=== PATIENT | female | born 1995 | race Caucasian/White ===

== ENCOUNTER 2024-05-14 12:05 | Emergency (ER) | payer BC, SELFPAY ==
[2024-05-14 12:09] VITALS: BP 123/96
--- NOTE | 2024-05-14 12:16 | ED.GENMED ---
History of Present Illness
<Temi Montero PA-C - Last Filed: 05/14/24 16:09>
General
Chief Complaint: Headache
Source: patient
Exam Limitations: none
Time Seen by Provider: 05/14/24 12:16
Nursing documentation reviewed up to this point in time: agreed with
History of Present Illness
History of Present Illness:
28-year-old female past medical history of migraines presents emergency department today with concerns of headache. Patient states that she woke up with a severe headache all over her head. She notes that her typical migraine she feels posteriorly
and are associated with nausea and vomiting. Patient states that she has never had headache this severe before. She has no fevers or chills. She notes some weakness when walking up the stairs and noes intermittent tingling the back of her head as
well as intermittent fullness and sensation of pressure. She also feels this behind her eyes. She denies dysphagia, facial droop, difficulty speaking, dizziness, lightheadedness, visual loss.
Review of Systems
<Temi Montero PA-C - Last Filed: 05/14/24 16:09>
Review of Systems
All Other Systems: ROS reviewed and negative except as documented in HPI and ROS
Phy Exam
<Temi Montero PA-C - Last Filed: 05/14/24 16:09>
Physical Exam
Physical Exam:
General: Patient is well appearing and in no acute distress; non-toxic
Skin: Warm and dry, no rashes or lesions
Head: Normocephalic, atraumatic
Eyes: Sclera non-icteric. EOMs intact. PERRLA.
Cardiac: Regular rate and rhythm, no murmurs
Pulm: Normal respiratory effort, no wheezes, rales, rhonchi
Musculoskeletal: 5/5 strength in bilateral upper and lower extremity
Neuro: CN II-XII intact, no focal neurologic deficits. Normal finger to nose, heel to amezcua testing, noral gait
Psychiatric: Appropriate mood and affect.
Course
<Temi Montero PA-C - Last Filed: 05/14/24 16:09>
Orders/Labs/Results
Orders:
Orders
05/14/24 12:35
Diphenhydramine [Benadryl] 25 mg IV NOW STA
Ketorolac [Toradol] 15 mg IV NOW STA
Metoclopramide [Reglan] 10 mg IV NOW STA
05/14/24 12:36
0.9% Sodium Chloride 1000 ml [Nss] 1,000 ml IV BOLUS
05/14/24 12:38
CT Head W/o Iv Contrast Urgent
Comment:
Reason For Exam: severe PITTS
Vital Signs
Initial and Last Documented VS:
Initial Vital Signs
Temp Pulse Resp BP Pulse Ox
97.6 F 76 18 123/96 100
05/14/24 12:09 05/14/24 12:09 05/14/24 12:09 05/14/24 12:09 05/14/24 12:09
Last Documented Vital Signs
Temp Pulse Resp BP Pulse Ox
97.6 F 76 18 110/67 99
05/14/24 12:09 05/14/24 12:09 05/14/24 12:09 05/14/24 13:35 05/14/24 13:36
<Romulo Goldberg DO - Last Filed: 05/14/24 13:46>
Orders/Labs/Results
Orders:
Orders
05/14/24 12:35
Diphenhydramine [Benadryl] 25 mg IV NOW STA
Ketorolac [Toradol] 15 mg IV NOW STA
Metoclopramide [Reglan] 10 mg IV NOW STA
05/14/24 12:36
0.9% Sodium Chloride 1000 ml [Nss] 1,000 ml IV BOLUS
05/14/24 12:38
CT Head W/o Iv Contrast Urgent
Comment:
Reason For Exam: severe PITTS
Vital Signs
Initial and Last Documented VS:
Initial Vital Signs
Temp Pulse Resp BP Pulse Ox
97.6 F 76 18 123/96 100
05/14/24 12:09 05/14/24 12:09 05/14/24 12:09 05/14/24 12:09 05/14/24 12:09
Last Documented Vital Signs
Temp Pulse Resp BP Pulse Ox
97.6 F 76 18 110/67 99
05/14/24 12:09 05/14/24 12:09 05/14/24 12:09 05/14/24 13:35 05/14/24 13:36
<Temi Montero PA-C - Last Filed: 05/14/24 16:09>
MDM/Problems Addressed
Differential Diagnosis Includes:
ddx include complex migraine, tension headache ,cluster headache, pseudotumor cerebri, subarachnoid hemorrhage
MDM/Problems Addressed:
NUMBER AND COMPLEXITY OF PROBLEMS ADDRESSED AT THE ENCOUNTER
� Chronic conditions affecting care: History of migraines
� Acute Exacerbation and/or Progression of Chronic Illness: n/a
AMOUNT AND/OR COMPLEXITY OF DATA TO BE REVIEWED AND ANALYZED
� I performed an independent evaluation of and my interpretation is:
CT: no acute intracranial abnormality
Other:
� Review of other/old records: No previous ER physician documentation to review or hospital discharge summaries to review
� Clinical information was obtained by an independent historian: partner present with patient
� Prescriptions/Medications Considered but not given: n/a
� Further testing considered but not performed: n/a
RISK OF COMPLICATIONS AND/OR MORBIDITY OR MORTALITY OF PATIENT MANAGEMENT
� Social determinants of health affecting care: none
� Discussion with other providers: ER attending
� Escalation of care including admission/observation vs risk of discharge considered:
28-year-old female with a past medical history of migraines presents emergency department today with headache. Patient notes that she has had on and off headaches for a while now and has a movements every other day but states that she woke up with,
the worst headache she has ever had. She also complained of subjective weakness but on her exam, she is well-appearing, she has no focal neurologic deficits. She has normal gait. She had a CAT scan of her head which was negative for any acute
intracranial abnormality, no evidence of bleeding. Suspect complex migraine. Patient was given migraine cocktail and notes a complete improvement in her symptoms. Patient is concerned that she might get this severe of a migraine again. Did
discuss maximizing ibuprofen and discussed appropriate dosing, also discussed sending rizatriptan as needed, discussed importance of follow-up for this and discussed the importance of establishing a PCP should patient not be able to get in with the
neurologist. Discussed return precautions, patient stable discharge.
<Temi Montero PA-C - Last Filed: 05/14/24 16:09>
*Critical Care Note
Total Time (30-74mins, 75-104mins- exclusive of procedures): Not Applicable
ED Attending Note
<Temi Montero PA-C - Last Filed: 05/14/24 16:09>
-
Portions of this chart may have been created with voice recognition software.� Occasional wrong word or��sound alike� substitutions may have occurred due to the inherent limitations of voice recognition software.
<Romulo Goldberg DO - Last Filed: 05/14/24 13:46>
ED Attending Note
Patient seen and examined by attending physician: Yes
I performed the substantive portion of visit, reviewed & personally made and approve the management plan that is documented in note by myself or MARGARITA.: Yes
ED Attending Note:
I evaluated patient at bedside. The patient reports a rather severe headache mostly in the back of her head. She does have a history of migraine but this feels worse. Therefore CT imaging obtained as patient denies any prior neuroimaging. CT
imaging negative. She is overall improved after meds given today.
Discharge Plan
Departure
Patient Disposition: Home (Routine Discharge)
Date of Disposition: 05/14/24
Time of Disposition: 14:05
Patient with high blood pressure during this ER visit?: No
Condition: Good
Discharge Problem:
Migraine headache
Instructions: Migraines (DC), Headache, Adult (DC)
Prescriptions:
New
rizatriptan 10 mg tablet
10 mg PO ONCE Qty: 8 0RF
Referrals:
NONE,* [Family Provider] -
Activity Restrictions/Additional Instructions:
Please schedule appointment to see a neurologist or primary care provider to help determine the appropriate migraine medication for you.
I recommend trying to utilize ibuprofen, prescription strength dosing is 600 mg every 6 hours as needed. Please do not exceed 3200 mg/day. Should you feel a migraine coming on, you can also take one rizatriptan tablet early in the development of
your migraine. You can only take one per day.
PLEASE RETURN EMERGENCY DEPARTMENT SHOULD YOU DEVELOP FEVER, NECK STIFFNESS, INTRACTABLE NAUSEA OR VOMITING, WEAKNESS ONE-SIDED BODY VERSUS OTHER, FACIAL DROOP, CONFUSION, FAINTING SPELLS, SYNCOPAL EPISODES, CHEST PAIN, SHORTNESS OF BREATH, OR ANY
OTHER SIGNS OR SYMPTOMS CONCERNING TO YOU.
Interventions
Interventions:
*Risk Screen - Suicide Last Done: 05/14/24 12:09
*General Assessment Last Done: 05/14/24 12:47
*Neglect/Abuse Screening Last Done: 05/14/24 12:47
*ED COVID-19 Vaccine History Last Done: 05/14/24 12:47
*Nursing Disposition Last Done: 05/14/24 14:25
ED- Neurological Assessment Last Done: 05/14/24 12:49
Discharge Date and Time
Discharge Date/Time: 05/14/24 14:26
Print Language: WELSH
[2024-05-14 12:26] VITALS: BP 134/96
[2024-05-14] MEDS: BENADRYL 25 MG IV (12:40)
[2024-05-14] MEDS: TORADOL 15 MG IV (12:41)
[2024-05-14] MEDS: NSS 1000 IV (12:41)
[2024-05-14] MEDS: REGLAN 10 MG IV (12:41)
[2024-05-14 13:00] VITALS: BP 118/81
[2024-05-14 13:35] VITALS: BP 110/67
== END 2024-05-14 14:26 | disposition home or self-care (01) ==
LOC: EMR 12:05
PROVIDERS: EMERGENCY PHYSICIAN Emergency Medicine
DX: G43.909 Migraine, unspecified, not intractable, without status migrainosus (principal)
CPT/HCPCS: 99284; 96374; 96375; 96361; 70450